=== PATIENT | male | born 1980 | race Two or more races ===

== ENCOUNTER 2020-09-11 23:15 | Emergency (ER) | payer MEDICAID ==
[~2020-09-11] VITALS: Ht 167.6 cm; Wt 81.6 kg
[2020-09-11 23:17] VITALS: BP 163/95
== END 2020-09-11 23:43 | disposition left against medical advice (07) ==
LOC: ER 23:18
DX: L02.511 Cutaneous abscess of right hand (principal); Z53.21 Procedure and treatment not carried out due to patient leaving prior to being seen by health care provider

== ENCOUNTER 2020-09-12 01:02 | Emergency (ER) | payer MEDICAID ==
[~2020-09-12] VITALS: Ht 167.6 cm; Wt 81.6 kg
[2020-09-12] MEDS ORDERED: CLINDAMYCIN 900MG IV 50 ML IV ONE (02:00)
[2020-09-12] MEDS ORDERED: AZITHROMYCIN 250 MG TAB PO ONE (02:00)
[2020-09-12 02:40] VITALS: BP 156/89
[2020-09-12 02:49] LABS: Basophils # (auto) 0.1 10 ^3/uL (0-0.2); Basophils % (auto) 0.7 % (0.0-2.0); Eosinophils # (auto) 0.1 10 ^3/uL (0-0.8); Eosinophils % (auto) 0.5 % (0.0-7.0); Hematocrit 44.8 % (41.0-53.0); Lymphocytes # (auto) 1.7 10 ^3/uL (0.4-5.4); Lymphocytes % (auto) 11.8 % (10.0-50.0); Mean Corpuscular Hemoglobin 27.6 pg (28.0-32.0); Mean Corpuscular Hgb Conc. 33.6 g/dL (32.0-36.0); Mean Corpuscular Volume 82.2 fL (80.0-100.0); Monocytes # (auto) 0.9 10 ^3/uL (0-1.3); Monocytes % (auto) 6.3 % (0.0-12.0); Neutrophils # (auto) 11.5 10 ^3/uL (1.6-8.6); Neutrophils % (auto) 80.7 % (37.0-80.0); Platelet Count (auto) 329 10^3/uL (140-450); Red Blood Cells 5.45 10^6/uL (4.5-5.90); Red Cell Distribution Width 13.1 % (11.8-14.3); White Blood Cell 14.2 10^3/uL (4.4-10.8)
== END 2020-09-12 05:16 | disposition home or self-care (01) ==
LOC: ER 01:03
DX: S60.511A Abrasion of right hand, initial encounter (principal); L03.113 Cellulitis of right upper limb; F15.10 Other stimulant abuse, uncomplicated; W55.03XA Scratched by cat, initial encounter; Y93.89 Activity, other specified; Y92.89 Other specified places as the place of occurrence of the external cause; Y99.8 Other external cause status
CPT/HCPCS: 36415; 73200; 85025; 87040; 96365; 99284; J3490

== ENCOUNTER 2022-02-17 21:07 | Emergency (ER) | payer MEDICAID ==
[~2022-02-17] VITALS: Ht 167.6 cm; Wt 210.0 kg
[2022-02-17 22:24] VITALS: BP 132/85
[2022-02-18] MEDS ORDERED: CLINDAMYCIN HCL 150 MG CAP PO ONE (01:30)
[2022-02-18] MEDS ORDERED: CLIN-188 PO (01:33)
== END 2022-02-18 01:42 | disposition home or self-care (01) ==
LOC: ER 21:07
DX: L03.113 Cellulitis of right upper limb (principal); L03.114 Cellulitis of left upper limb; E78.5 Hyperlipidemia, unspecified; F17.210 Nicotine dependence, cigarettes, uncomplicated; Z79.899 Other long term (current) drug therapy; Z59.00 Homelessness unspecified